=== PATIENT | female | born 1960 | race Caucasian/White ===

== ENCOUNTER 2018-03-17 13:32 | Emergency (ER) | payer BC ==
[~2018-03-17] VITALS: Ht 160 cm; Wt 113.6 kg
[2018-03-17 16:53] LABS: COLLECTION METHOD CLEAN CATCH
[2018-03-17 16:55] LABS: BASO % 0.5 % (0.0-2.0); EOS # 0.2 (0.0-0.7); EOS % 2.2 % (0-4.0); GRAN # 4.7 (1.4-6.5); GRAN % 54.6 % (42.2-75.2); HEMOGLOBIN 11.3 g/dl (12.5-16.0); LYMPH % 34.7 % (20.0-51.0); MEAN CELL VOLUME 87 fl (80.0-100.0); MEAN CORPUSCULAR HEMOGLOBIN 27 pg (27.0-31.0); MEAN CORPUSCULAR HGB CONC 32 g/dl (33.0-37.0); MEAN PLATELET VOLUME 11.3 fl (7.4-10.4); MONO # 0.7 (0.1-0.6); MONO % 7.8 % (1.7-9.3); PLATELET COUNT 236 K/mm3 (130-400); RED BLOOD COUNT 4.12 M/mm3 (4.10-5.30)
[2018-03-17 16:58] LABS: HEMATOCRIT 35.9 % (37.0-47.0)
[2018-03-17 17:01] LABS: MUCOUS Present /lpf; PH 5 (5-8); SQUAMOUS EPITHELIAL 0-2 /hpf; URINE APPEARANCE Hazy; URINE BACTERIA Rare /hpf; URINE BILIRUBIN Negative (NEGATIVE); URINE BLOOD Negative (NEGATIVE); URINE COLOR Yellow; URINE GLUCOSE Negative (NEGATIVE); URINE KETONE Negative (NEGATIVE); URINE LEUKOCYTE ESTERASE 1+ (NEGATIVE); URINE NITRATE Positive (NEGATIVE); URINE PROTEIN(semi-quant) Negative (NEGATIVE); URINE RBC 0-2 /hpf; URINE UROBILINOGEN Negative (NEGATIVE)
[2018-03-17 18:28] LABS: ALBUMIN 4.1 gm/dL (3.5-5.0); BILIRUBIN,TOTAL 0.3 mg/dL (0.0-1.0); C-REACTIVE PROTEIN 0.6 mg/dL (0.0-0.9); CALCIUM 9.1 mg/dL (8.4-10.2); CREATININE, serum 0.71 mg/dL (0.52-1.25); POTASSIUM 3.9 mmol/L (3.4-5.0); TOTAL PROTEIN 7.4 gm/dL (6.4-8.2)
[2018-03-17] MEDS ORDERED: PHENERGAN 25 TA25 MG PO (18:59)
[2018-03-17] MEDS ORDERED: NORCO 325 MG-51 TAB PO (18:59)
[2018-03-17 19:13] VITALS: BP 126/74; PULSE 73; TEMP 97.4
[2018-03-18] MEDS ORDERED: MACROBID 1100 MG/CAP PO (17:55)
== END 2018-03-17 19:14 | disposition home or self-care (01) ==
LOC: COL.ER 13:32
PROVIDERS: Emergency Medicine
DX: R10.13 Epigastric pain (principal); Z90.49 Acquired absence of other specified parts of digestive tract
CPT/HCPCS: J0780; J1170; J1200; J7030

== ENCOUNTER → 2018-05-31 | Outpatient (CLI) | payer BC ==
[~2018-05-31] MED LIST: MACROBID 1100 MG/CAP PO; NORCO 325 MG-51 TAB PO; PHENERGAN 25 TA25 MG PO
== END ==
LOC: MC.RAD 07:15
DX: Z12.31 Encounter for screening mammogram for malignant neoplasm of breast (principal)